=== PATIENT | female | born 2005 | race Two or more races ===

== ENCOUNTER 2024-02-14 11:46 | Emergency (ER) | payer MEDICAID, OTHER ==
[~2024-02-14] VITALS: Ht 157.5 cm; Wt 45.8 kg
[2024-02-14 12:28] LABS: Urine Bacteria FEW /hpf (None Seen); Urine Blood 2+ /uL (Negative); Urine Clarity Turbid (Clear); Urine Mucus FEW (None Seen); Urine Protein, UAD 1+ (Negative); Urine Specific Gravity 1.017 (1.001-1.035); Urine Urobilinogen 4 mg/dL (Negative); Urine WBC 453 /hpf (0 - 5); Urine WBC Clumps PRESENT /hpf (None Seen)
[2024-02-14 12:31] LABS: Urine Color ORANGE (Yellow)
[2024-02-14 12:55] VITALS: BP 128/88; PULSE 80; RESP 17; TEMP 99; O2SAT 98
[2024-02-14] MEDS: cefTRIAXone SOD 1,000 MG VL IM ONE (13:00)
[2024-02-14] MEDS ORDERED: PHEN-922 PO (13:06)
[2024-02-14] MEDS ORDERED: BACDST PO (13:06)
== END 2024-02-14 13:11 | disposition home or self-care (01) ==
LOC: ER 11:46
DX: N39.0 Urinary tract infection, site not specified (principal); M79.10 Myalgia, unspecified site; Z79.899 Other long term (current) drug therapy
CPT/HCPCS: 81001; 81025; 96372; 99283; J0696

== ENCOUNTER 2024-02-26 15:52 | Emergency (ER) | payer MEDICAID ==
[~2024-02-26] VITALS: Ht 157.5 cm; Wt 43.5 kg
[~2024-02-26 15:52] MED LIST: BACDST PO; PHEN-922 PO
[2024-02-26 18:11] LABS: Urine Bacteria None Seen /hpf (None Seen)
[2024-02-26 19:01] LABS: Urine Blood 2+ /uL (Negative); Urine Clarity Clear (Clear); Urine Color Yellow (Yellow); Urine Mucus FEW (None Seen); Urine Protein, UAD TRACE (Negative); Urine Specific Gravity 1.022 (1.001-1.035); Urine Urobilinogen 2 mg/dL (Negative); Urine WBC 18 /hpf (0 - 5)
[2024-02-26] MEDS ORDERED: NITR-87 PO (19:17)
[2024-02-26] MEDS ORDERED: PRED20TA2 PO (19:17)
[2024-02-26 19:45] VITALS: BP 113/86; PULSE 80; RESP 18; TEMP 98.6; O2SAT 98
[2024-02-26] MEDS: ACETAMINOPHEN 325 MG TAB PO ONE (19:52)
== END 2024-02-26 20:01 | disposition home or self-care (01) ==
LOC: ER 15:52
DX: N39.0 Urinary tract infection, site not specified (principal); L25.8 Unspecified contact dermatitis due to other agents; T36.8X5A Adverse effect of other systemic antibiotics, initial encounter; Y92.9 Unspecified place or not applicable
CPT/HCPCS: 81001